=== PATIENT | male | born 1970 | race Caucasian/White ===

== ENCOUNTER 2017-03-08 20:59 | Emergency (ER) | payer OTHER ==
[2017-03-08] MEDS ORDERED: ONDANSETRON HCL8 MG PO (22:17)
[2017-03-08] MEDS ORDERED: PANTOPRAZOLE SO40 M1 PO (22:17)
--- NOTE | 2017-03-08 23:11 | ED GI/GU/ABDOMINAL COMPLAINT ---
See Addendum History of Present Illness General Chief Complaint: Abdominal Pain/Flank Pain Stated Complaint: ABD PAIN Source: patient Exam Limitations: no limitations Vital Signs & Intake/Output Vital Signs & Intake/Output Vital Signs Date Time Temp Pulse Resp B/P B/P Pulse O2 O2 Flow FiO2 Mean Ox Delivery Rate 03/08 2246 Room Air 03/08 2153 97.3 68 20 170/100 97 Room Air ED Intake and Output 03/09 0000 03/08 1200 Intake Total Output Total Balance Patient 225 lb Weight Allergies Coded Allergies: NO KNOWN ALLERGIES (01/14/14) Reconcile Medications Ondansetron HCl 8 MG TABLET 1 TAB PO TID N/V (Reported) Pantoprazole Sodium 40 MG TABLET. 1 TAB PO DAILY GI (Reported) Triage Note: PER PT ABD PAIN X 1 WEEK SAW PMD HAD NEGATIVE LABS TODAY CT HAS TO GO THROUGH INSURANCE SO CAME HERE TO GET IT DONE Triage Nurses Notes Reviewed? yes HPI: Patient presents for evaluation of abdominal pain. Patient states his abdominal pain began Tuesday night gradually with nausea vomiting and diarrhea. Patient has felt abdominal distention and bloating resulting in a decreased PO intake. Patient states the amount of diarrhea is quite variable but states that it is often "a lot". Patient denies mucus or blood in the diarrhea. Patient denies any associated fever, cold symptoms, dysuria or recent travel. Patient states he had an episode of abdominal pain back in 2013 resulting in a colonoscopy a CAT scan and a tissue biopsy. Patient is not sure what the results were. No family history of GI disease. Patient is been evaluated by his primary care physician for this and placed on ondansetron and pantoprazole, without improvement. Patient's diarrhea resolved on Tuesday and he has been passing flatus since. Past History Travel History Traveled to [place] past 21 day No Medical History Any Pertinent Medical History? see below for history Neurological: NONE EENT: NONE Cardiovascular: hypertension Respiratory: NONE Gastrointestinal: NONE Hepatic: NONE Renal: NONE Musculoskeletal: NONE Psychiatric: NONE Endocrine: NONE Surgical History Surgical History: non-contributory Psychosocial History What is your primary language Japanese Tobacco Use: Never used Family History Hx Contributory? No Review of Systems Review of Systems Constitutional: Reports: no symptoms. EENTM: Reports: no symptoms. Respiratory: Reports: no symptoms. Cardiovascular: Reports: no symptoms. GI: Reports: see HPI. Genitourinary: Reports: no symptoms. Musculoskeletal: Reports: no symptoms. Skin: Reports: no symptoms. Neurological/Psychological: Reports: no symptoms. Hematologic/Endocrine: Reports: no symptoms. Immunologic/Allergic: Reports: no symptoms. All Other Systems: Reviewed and Negative Physical Exam Physical Exam Gastrointestinal: SEE BELOW Comments: Gen.: Well-nourished, well-developed, no acute respiratory distress. Head: Normocephalic, atraumatic. Eyes: Normal inspection bilaterally Ears: Normal inspection bilaterally Nose: Normal inspection Throat/mouth : Moist mucosa Neck: Supple, full range of motion, no goiter Heart: Regular rate and rhythm, no murmurs rubs or gallops Lungs: Clear to auscultation bilaterally with normal air entry Chest: Nontender Back: Normal range of motion Abdomen: Soft, right lower quadrant abdominal tenderness without rebound or guarding, nondistended, normal bowel sounds Extremities: Normal range of motion grossly, equal radial pulses, no cyanosis clubbing or edema Neurologic: Cranial nerves grossly intact, speech is clear Skin: warm and dry Psychiatric: Calm, cooperative, no apparent delusions or hallucinations Core Measures ACS in differential dx? No Severe Sepsis Present: No Septic Shock Present: No Progress Differential Diagnosis: diverticulitis, appendicitis, biliary colic, colitis Plan of Care: Orders Procedure Date/time Status URINALYSIS 03/08 2317 Complete LIPASE 03/08 2317 Complete COMPREHENSIVE METABOLIC PANEL 03/08 2317 Complete CBC WITHOUT DIFFERENTIAL 03/08 2317 Complete Laboratory Tests 03/08/17 2356: Urinalysis MOD H, Urine Color YEL, Urine Clarity CLEAR, Urine pH 6.0, Ur Specific Hope >= 1.030, Urine Protein TRACE H, Urine Ketones 40 H, Urine Nitrite NEG, Urine Bilirubin NEG@ICTO, Urine Urobilinogen 1.0, Ur Leukocyte Esterase NEG, Ur Microscopic SEDIMENT EXAMINED, Urine RBC RARE, Urine WBC 1-3 H , Ur Epithelial Cells RARE, Urine Bacteria MOD H, Urine Mucus MOD H, Urine Hemoglobin TRACE-LYSED H, Urine Glucose NEG 03/08/17 2320: Anion Gap 10, Estimated GFR > 60, BUN/Creatinine Ratio 22.2, Glucose 111 H, Calcium 10.1, Total Bilirubin 1.1, AST 23, ALT 42, Alkaline Phosphatase 69, Total Protein 7.8, Albumin 5.0, Globulin 2.8, Albumin/Globulin Ratio 1.8, Lipase 68, CBC w Diff NO MAN DIFF REQ, RBC 5.28, MCV 85.1, MCH 28.7, RDW 12.4, MPV 8.2, Gran % 83.1 H, Lymphocytes % 10.2 L, Monocytes % 5.8, Eosinophils % 0.7, Basophils % 0.2, Absolute Granulocytes 8.7 H, Absolute Lymphocytes 1.1 L, Absolute Monocytes 0.6, Absolute Eosinophils 0.1, Absolute Basophils 0, PUBS MCHC 33.8 Diagnostic Imaging: Discussed w/RAD: CT Scan. Radiology Impression: PATIENT: DOMINICK HERNANDEZ PRESENT AGE: 47 PATIENT ACCOUNT NO: [id number] : 71 LOCATION: [facility] ORDERING PHYSICIAN: MOE RAMSEY MD SERVICE DATE: 03/08/17 EXAM TYPE: CAT - CT ABD & PELVIS W IV CONTRAST EXAMINATION: CT ABDOMEN AND PELVIS WITH CONTRAST CLINICAL INFORMATION: Right-sided abdominal pain and tenderness. COMPARISON: . TECHNIQUE: Multidetector volumetric imaging was performed of the abdomen and pelvis after the IV administration of 95 mL of Optiray 320 intravenous contrast. Sagittal and coronal reformatted images were obtained on the technologist's workstation. DLP: 812.2 mGy-cm FINDINGS: LUNG BASES: The visualized lung bases are unremarkable. LIVER, GALLBLADDER, AND BILIARY TREE: The liver is normal in size, shape, and attenuation. No focal hepatic lesion or biliary ductal dilatation is present. The gallbladder is unremarkable with no evidence of radiopaque gallstones, gallbladder wall thickening, or obvious pericholecystic inflammatory changes. PANCREAS: Unremarkable. SPLEEN: Unremarkable. ADRENAL GLANDS: Unremarkable. KIDNEYS AND URETERS: The kidneys are normal in size, shape, and attenuation. No hydronephrosis, hydroureter, or calculi seen. No perinephric stranding. BLADDER: Unremarkable. GASTROINTESTINAL TRACT: Again seen is a long segment of wall thickening and mural stratification of the distal ileum with mild surrounding fat stranding. Similar wall thickening and calcification also present within the cecum and descending colon. This appearance is similar to the prior study from 01/14/2014 and consistent with terminal ileum/colitis. Appendix is normal. A few colonic diverticula are identified. No evidence of acute diverticulitis. A trace amount of intraperitoneal free fluid is present in the pelvis. No free air. ABDOMINAL WALL : Small fat-containing umbilical hernia. No bowel involvement. LYMPH NODES: A few prominent mesenteric lymph nodes are present. No pathologic adenopathy. VASCULAR: Unremarkable. PELVIC VISCERA: The prostate and seminal vesicles are unremarkable. OSSEOUS STRUCTURES: c severe degenerative disc disease is present in the lower lumbar spine at L4-L5. There is a sacralized L5 vertebral body. More mild multilevel degenerative disc disease is present within the lower thoracic spine. LV herniation pits are again seen in the femurs. There is mild degenerative arthritis bilaterally. IMPRESSION: Terminal ileitis with colitis of the cecum and ascending colon, similar in appearance to the study from 2013. The location is typical for Crohn's disease, though infectious enterocolitis is also possible. DICTATED BY: JANINE COX MD DATE/TIME DICTATED:03/09/1731 WINE CONSULTANT:CHRISTOPHER DATE/TIME TRANSCRIBED:03/09/1731 CONFIDENTIAL, DO NOT COPY WITHOUT APPROPRIATE AUTHORIZATION. <Electronically signed in Other Vendor System> SIGNED BY: JANINE COX MD 03/09/17 0043 Initial ED EKG: none Departure Departure Disposition: HOME OR SELF CARE Condition: Stable Clinical Impression Primary Impression: Colitis Referrals: ESTELLA GODOY,MARIA C Bhandari (PCP/Family) Additional Instructions: Continue Zofran if needed for nausea or vomiting. Levsin as needed for cramping abdominal pain. Tramadol if needed for more severe abdominal pain. Follow-up with your primary care physician for reevaluation this week. Return if any concerns or sudden worsening. Please note that there might be incidental findings in your evaluation that are unrelated to the current emergency department visit. Please notify your primary care doctor about this emergency department visit in order to obtain and review all of the testing performed so that these incidental findings can be monitored as needed. If you had an x-ray performed, please understand that some fractures may not be seen on the initial set of x-rays. If your symptoms persist you might need a repeat set of x-rays to check for such a fracture. If you had a laceration evaluated, please understand that foreign bodies such as glass or wood may not be visible to the naked eye or on plain x-rays. If the wound becomes red, swollen, increasingly more painful or if there is any drainage from the wound, please have it reevaluated by a physician for the possibility of a retained foreign body. If you're unable to follow up as outlined in the discharge instructions please return to the emergency department. Thank you for choosing the [facility] Emergency Department for your care. It was a pleasure to serve you today. Moe Ramsey M.D. [facility] Departure Forms: Customer Survey General Discharge Information Prescriptions: Current Visit Scripts Hyoscyamine (Levsin) 1-2 TAB PO Q6P PRN ABDOMINAL CRAMPS #20 TAB Tramadol HCl (Ultram) 1-2 TAB PO Q6P PRN PAIN #20 TAB
[2017-03-08 23:35] LABS: ABSOLUTE BASOPHIL COUNT 0 /CUMM (0.0-0.2); ABSOLUTE EOSINOPHIL COUNT 0.1 /CUMM (0.0-0.7); ABSOLUTE MONOCYTE COUNT 0.6 /CUMM (0.10-0.60); BASOPHIL % 0.2 % (0.0-2.0); EOSINOPHIL % 0.7 % (0-5); GRANULOCYTE % 83.1 % (42.2-75.2); HEMATOCRIT 44.9 % (42-52); MEAN CORPUSCULAR HGB 28.7 PG (27.0-31.0); MEAN CORPUSCULAR HGB CONC 33.8 G/DL (33.0-37.0); MEAN CORPUSCULAR VOLUME 85.1 FL (80.0-94.0); MEAN PLATELET VOLUME 8.2 FL (7.4-10.4); PLATELET COUNT 190 /CUMM (130-400); RBC DISTRIBUTION WIDTH 12.4 % (11.5-14.5); RED BLOOD CELL CT 5.28 /CUMM (4.70-6.10); WHITE BLOOD CELL COUNT 10.5 /CUMM (4.8-10.8)
[2017-03-08 23:40] LABS: ABSOLUTE GRANULOCYTE CT 8.7 /CUMM (1.4-6.5); ABSOLUTE LYMPH COUNT 1.1 /CUMM (1.2-3.4)
--- NOTE | 2017-03-09 00:43 | CT SCAN REPORT ---
EXAMINATION: CT ABDOMEN AND PELVIS WITH CONTRAST CLINICAL INFORMATION: Right-sided abdominal pain and tenderness. COMPARISON: 01/14/2014. TECHNIQUE: Multidetector volumetric imaging was performed of the abdomen and pelvis after the IV administration of 95 mL of Optiray 320 intravenous contrast. Sagittal and coronal reformatted images were obtained on the technologist's workstation. DLP: 812.2 mGy-cm FINDINGS: LUNG BASES: The visualized lung bases are unremarkable. LIVER, GALLBLADDER, AND BILIARY TREE: The liver is normal in size, shape, and attenuation. No focal hepatic lesion or biliary ductal dilatation is present. The gallbladder is unremarkable with no evidence of radiopaque gallstones, gallbladder wall thickening, or obvious pericholecystic inflammatory changes. PANCREAS: Unremarkable. SPLEEN: Unremarkable. ADRENAL GLANDS: Unremarkable. KIDNEYS AND URETERS: The kidneys are normal in size, shape, and attenuation. No hydronephrosis, hydroureter, or calculi seen. No perinephric stranding. BLADDER: Unremarkable. GASTROINTESTINAL TRACT: Again seen is a long segment of wall thickening and mural stratification of the distal ileum with mild surrounding fat stranding. Similar wall thickening and calcification also present within the cecum and descending colon. This appearance is similar to the prior study from 01/14/2014 and consistent with terminal ileum/colitis. Appendix is normal. A few colonic diverticula are identified. No evidence of acute diverticulitis. A trace amount of intraperitoneal free fluid is present in the pelvis. No free air. ABDOMINAL WALL: Small fat-containing umbilical hernia. No bowel involvement. LYMPH NODES: A few prominent mesenteric lymph nodes are present. No pathologic adenopathy. VASCULAR: Unremarkable. PELVIC VISCERA: The prostate and seminal vesicles are unremarkable. OSSEOUS STRUCTURES: c severe degenerative disc disease is present in the lower lumbar spine at L4-L5. There is a sacralized L5 vertebral body. More mild multilevel degenerative disc disease is present within the lower thoracic spine. LV herniation pits are again seen in the femurs. There is mild degenerative arthritis bilaterally. IMPRESSION: Terminal ileitis with colitis of the cecum and ascending colon, similar in appearance to the study from 2013. The location is typical for Crohn's disease, though infectious enterocolitis is also possible.
[2017-03-09] MEDS ORDERED: LEVSIN0.125 M1 PO (01:01)
[2017-03-09] MEDS ORDERED: ULTRAM50 M1 PO (01:01)
[2017-03-09 01:14] VITALS: BP 169/99
== END 2017-03-09 01:13 ==
LOC: ERH 20:59
PROVIDERS: Emergency Medicine
DX: K52.9 Noninfective gastroenteritis and colitis, unspecified (principal); I10 Essential (primary) hypertension
CPT/HCPCS: 74177; 81001